=== PATIENT | female | born 1965 | race Caucasian/White ===

== ENCOUNTER 2024-01-22 14:54 | Outpatient (CLI) | payer BC | END 2024-01-22 23:59 | disposition home or self-care (01) | LOC: VAS 14:54 | PROVIDERS: ATTEND Surgery | DX: M79.89 Other specified soft tissue disorders (principal); C50.411 Malignant neoplasm of upper-outer quadrant of right female breast; Z86.711 Personal history of pulmonary embolism | CPT/HCPCS: 93970 ==